=== PATIENT | female | born 1970 | race Caucasian/White ===

== ENCOUNTER 2016-07-15 21:12 | Inpatient (IN) | payer MEDICAID, OTHER ==
[~2016-07-15] VITALS: Ht 172.7 cm; Wt 126.6 kg
[~2016-07-15 21:12] MED LIST: ACET-4192 PO; CYCL-405 PO; IBUP-2213 PO
[2016-07-15 21:14] VITALS: BP 140/75
[2016-07-15 21:52] LABS: APPEARANCE,URINE HAZY (CLEAR); BILIRUBIN,URINE NEGATIVE (NEGATIVE); BLOOD, URINE 3+ (NEGATIVE); COLOR,URINE YELLOW (YELLOW); LEUKOCYTE ESTERASE ,URINE 1+ (NEGATIVE); NITRITE, URINE NEGATIVE (NEGATIVE); PROTEIN,URINE TRACE (NEGATIVE); UGLUCOSE NEGATIVE (NEGATIVE)
[2016-07-15 22:01] LABS: RBC,URINE 80-100 /HPF (0-5)
[2016-07-15 22:02] LABS: BACTERIA,URINE 2+ /HPF (None Seen); MUCUS,URINE 3+ /LPF (None Seen)
[2016-07-15] MEDS ORDERED: LORazepam 1 MG TAB PO ONE (23:20)
[2016-07-15] MEDS ORDERED: KETOROLAC 30 MG/ML VIAL IM ONE (23:20)
[2016-07-15 23:56] LABS: ANION GAP 10.5 (8-16); CARBON DIOXIDE 28.1 mmol/L (21-32); CREATININE 0.6 mg/dL (0.6-1.3); POTASSIUM 3.6 mmol/L (3.5-5.1)
[2016-07-16 00:10] LABS: RED BLOOD CELL COUNT(AUTO) 4.04 MIL/uL (4.20-5.40); WHITE BLOOD COUNT (AUTO) 20.2 K/uL (4.8-10.8)
[2016-07-16 00:12] LABS: HEMOGLOBIN 5.7 g/dL (12.0-16.0)
[2016-07-16 00:13] LABS: HEMATOCRIT 17.1 % (36-48); MEAN CORPUSCULAR HEMOGLOBIN 14 pg (27-31); MEAN CORPUSCULAR HGB CONC 27 g/dL (33-37); MEAN CORPUSCULAR VOLUME 53 fL (80-94); RED CELL DISTRIBUTION WIDTH 21.3 % (11.6-13.7)
[2016-07-16 00:14] LABS: PLATELET COUNT (AUTO) 571 K/uL (140-450)
[2016-07-16 00:15] LABS: BAND % (MANUAL) 4 % (0-8); LYMPHOCYTES % (MANUAL) 7 % (20-46); MONOCYTES % (MANUAL) 0 % (5-12); NEUTROPHILS % (MANUAL) 89 (43-65)
[2016-07-16 01:27] LABS: INR 1.2 (0.8-1.2); PROTHROMBIN TIME 11.8 secs (10.8-13.4)
[2016-07-16 03:13] VITALS: BP 130/58
[2016-07-16 04:00] VITALS: BP 110/59
[2016-07-16] MEDS ORDERED: MORPHINE SULFATE 2 MG/ML SYR IVP PRN (07:20)
[2016-07-16] MEDS ORDERED: HYDROcodone/APAP 5/325 MG 1 TAB TAB PO PRN ×2 (07:20)
[2016-07-16] MEDS ORDERED: ONDANSETRON 4 MG/2 ML VIAL IVP PRN (07:20)
[2016-07-16] MEDS ORDERED: ALBUTEROL 0.083% 2.5 MG/3 ML NEBU INH PRN (07:20)
[2016-07-16] MEDS ORDERED: diphenhydrAMINE 50 MG/ML VIAL IVP PRN (07:20)
[2016-07-16] MEDS ORDERED: ZOLPIDEM 5 MG TAB PO PRN (07:20)
[2016-07-16] MEDS ORDERED: SODIUM PHOSPHATE 118 ML ENEM RC PRN (07:20)
[2016-07-16] MEDS ORDERED: ALUMINUM HYD/MAG/SIMETHICONE 30 ML UDC PO PRN (07:20)
[2016-07-16] MEDS ORDERED: POTASSIUM CHLORIDE 40 MEQ, LIDOCAINE 1% 25 MG in NACL 0.9% 250 ML IV PRN (07:20)
[2016-07-16] MEDS ORDERED: MAGNESIUM OXIDE 400 MG TAB PO PRN (07:20)
[2016-07-16] MEDS ORDERED: guaiFENesin DM 200/20 MG-10 ML 10 ML UDC PO PRN (07:20)
[2016-07-16] MEDS ORDERED: POTASSIUM CHLORIDE 10 MEQ TABER PO PRN (07:20)
[2016-07-16] MEDS ORDERED: IPRATROPIUM 0.02% 0.5 MG/2.5 ML NEBU INH PRN (07:20)
[2016-07-16] MEDS ORDERED: ACETAMINOPHEN 325 MG TAB PO PRN (07:20)
[2016-07-16] MEDS ORDERED: ACETAMINOPHEN 650 MG SUPP RC PRN (07:20)
[2016-07-16] MEDS ORDERED: DOCUSATE SODIUM 250 MG GELCAP PO PRN (07:20)
[2016-07-16] MEDS ORDERED: cloNIDine 0.1 MG TAB PO PRN (07:20)
[2016-07-16] MEDS ORDERED: MAG SULF 2000 MG/WATER PREMIX 50 ML IV PRN (07:20)
[2016-07-16] MEDS ORDERED: LORazepam 2 MG/ML VIAL IVP PRN (07:20)
[2016-07-16] MEDS ORDERED: BISACODYL 10 MG SUPP RC PRN (07:20)
[2016-07-16 08:13] VITALS: BP 118/62
[2016-07-16 12:00] VITALS: BP 115/49
[2016-07-16 16:00] VITALS: BP 110/58
[2016-07-16 20:00] VITALS: BP 111/55
[2016-07-17] VITALS: BP 109/45
[2016-07-17 04:00] VITALS: BP 112/70
[2016-07-17 05:42] LABS: HEMOGLOBIN 7.4 g/dL (12.0-16.0)
[2016-07-17 06:19] LABS: BASOPHILS # (AUTO) 0.1 K/uL (0.00-0.22); BASOPHILS % (AUTO) 0.6 % (0.0-2.0); EOSINOPHILS # (AUTO) 0.2 K/uL (0-0.4); HEMATOCRIT 25.7 % (36-48); LYMPHOCYTES # (AUTO) 2.9 K/uL (2.5-16.5); MEAN CORPUSCULAR HEMOGLOBIN 17 pg (27-31); MEAN CORPUSCULAR HGB CONC 29 g/dL (33-37); MEAN CORPUSCULAR VOLUME 59 fL (80-94); MONOCYTES # (AUTO) 0.6 K/uL (0.8-1.0); MONOCYTES % (AUTO) 5.5 % (1.7-9.3); NEUTROPHILS # (AUTO) 7.7 K/uL (1.8-7.7); NEUTROPHILS % (AUTO) 66.9 % (42.2-75.2); PLATELET COUNT (AUTO) 484 K/uL (140-450); RED BLOOD CELL COUNT(AUTO) 4.33 MIL/uL (4.20-5.40); WHITE BLOOD COUNT (AUTO) 11.5 K/uL (4.8-10.8)
[2016-07-17 06:52] LABS: ANISOCYTOSIS 1+; HYPOCHROMASIA 1+; OVALOCYTES 1+; POIKILOCYTOSIS 1+
[2016-07-17 07:41] VITALS: BP 123/71
[2016-07-17 09:50] VITALS: BP 115/66
[2016-07-17 11:58] VITALS: BP 122/78
[2016-07-17] MEDS ORDERED: FERR325E14 PO (12:35)
[2016-07-17 12:48] VITALS: BP 122/78
== END 2016-07-17 16:12 | disposition home or self-care (01) | DRG 532 ==
LOC: MED 21:12 → MTU 07-16 01:54
PROVIDERS: ADMIT Hospitalist; ATTEND Hospitalist
PROC: 30233N1 Transfusion of Nonautologous Red Blood Cells into Peripheral Vein, Percutaneous Approach (ICD-10-PCS; principal; 2016-07-16)
PROC: 30233N1 Transfusion of Nonautologous Red Blood Cells into Peripheral Vein, Percutaneous Approach (ICD-10-PCS; 2016-07-17)
DX: N92.0 Excessive and frequent menstruation with regular cycle (principal); N39.0 Urinary tract infection, site not specified; Z68.41 Body mass index [BMI] 40.0-44.9, adult; D64.9 Anemia, unspecified; E66.9 Obesity, unspecified; R73.9 Hyperglycemia, unspecified
CPT/HCPCS: 36415; 71010; 80048; 81001; 83036; 83540; 84484; 85025; 85610; 85730; 86886; 86900; 86901; 86920; 87081; 87086; 93005; 96372; 99285; J0696; J1885; J7030; J7060; P9016; Q0092

== ENCOUNTER 2017-01-18 09:57 | Emergency (ER) | payer OTHER ==
[~2017-01-18] VITALS: Ht 172.7 cm; Wt 127.0 kg
[~2017-01-18 09:57] MED LIST changes: +FERR325E14 PO; -IBUP-2213 PO
--- NOTE | 2017-01-18 09:58 | NUR ---
Patient BIBA to bed 4
[2017-01-18 10:00] VITALS: BP 155/79
--- NOTE | 2017-01-18 10:00 | NUR ---
PATIENT PRESENTS TO ED WITH C/O HEAVY BLEEDING FOR THE PAST DAYS BUT ONLY SPOTTING AT THIS TIME. TAKING IRON MEDS. UNK. DOSAGE.PT STATES SHE HAS LLQ PAIN THAT RADIATES TO HER LOWER BACK;SKIN IS PINK/WARM/DRY; AAOX4 WITH EVEN AND STEADY GAIT; LUNGS CLEAR BL; HR EVEN AND REGULAR; PT DENIES ANY FEVER, CP, SOB, OR COUGH AT THIS TIME; PATIENT STATES PAIN OF 10/10 AT THIS TIME;PATIENT POSITIONED FOR COMFORT; HOB ELEVATED; BEDRAILS UP X2; BED DOWN.ALL MONITORS IN PLACED; ER MD MADE AWARE OF PT STATUS.
[2017-01-18] MEDS ORDERED: ACETAMINOPHEN EXTRA STRENGTH 500 MG TAB ONE (10:18)
[2017-01-18] MEDS ORDERED: KETOROLAC 30 MG/ML VIAL IVP ONE (10:30)
[2017-01-18] MEDS ORDERED: NACL 0.9% 1,000 ML IV ONE (10:30)
[2017-01-18 10:35] LABS: HEMATOCRIT 33.8 % (36-48); HEMOGLOBIN 10.5 g/dL (12.0-16.0); MEAN CORPUSCULAR HEMOGLOBIN 23 pg (27-31); MEAN CORPUSCULAR HGB CONC 31 g/dL (33-37); MEAN CORPUSCULAR VOLUME 75 fL (80-94); PLATELET COUNT (AUTO) 606 K/uL (140-450); RED BLOOD CELL COUNT(AUTO) 4.51 MIL/uL (4.20-5.40); RED CELL DISTRIBUTION WIDTH 16.7 % (11.6-13.7); WHITE BLOOD COUNT (AUTO) 19.9 K/uL (4.8-10.8)
[2017-01-18 10:44] LABS: ANION GAP 12.1 (8-16); CARBON DIOXIDE 28.7 mmol/L (21-32); CREATININE 0.6 mg/dL (0.6-1.3); POTASSIUM 3.8 mmol/L (3.5-5.1)
[2017-01-18 10:45] LABS: PROTHROMBIN TIME 11.4 secs (10.8-13.4)
[2017-01-18 10:50] LABS: ALBUMIN 3.6 g/dL (3.4-5.0); TOTAL BILIRUBIN 0.4 mg/dL (0.0-1.0)
[2017-01-18 10:52] LABS: EOSINOPHILS % (MANUAL) 4 % (0-4); LYMPHOCYTES % (MANUAL) 4 % (20-46); MONOCYTES % (MANUAL) 3 % (5-12)
--- NOTE | 2017-01-18 11:42 | NUR ---
PT RESTING ON BED;NO ACUTE DISTRESS NOTED;WILL CONTINUE TO MONITOR PT.
--- NOTE | 2017-01-18 11:46 | NUR ---
XRAY AT BEDSIDE.
[2017-01-18 12:30] LABS: APPEARANCE,URINE CLEAR (CLEAR); BILIRUBIN,URINE NEGATIVE (NEGATIVE); BLOOD, URINE 3+ (NEGATIVE); COLOR,URINE YELLOW (YELLOW); LEUKOCYTE ESTERASE ,URINE NEGATIVE (NEGATIVE); NITRITE, URINE NEGATIVE (NEGATIVE); UGLUCOSE TRACE (NEGATIVE)
--- NOTE | 2017-01-18 12:34 | NUR ---
PT AMBULATED TO THE RESTROOM ACCOMPANIED BYB HER .
[2017-01-18 12:59] LABS: RBC,URINE 3-10 (FEW) /HPF (0-5); WBC,URINE 0-5 (RARE) /HPF (0-5)
--- NOTE | 2017-01-18 13:09 | NUR ---
PT SLEEPING;ALL MONITORS IN PLACED;NO ACUTE DISTRESS NOTED;WILL CONTINUE TO MONITOR PT.
--- NOTE | 2017-01-18 14:00 | NUR ---
DR. BUTLER SPOKE TO PATIENT AND REGARDING DISPOSITION FOR DISCHARGE
[2017-01-18 14:20] VITALS: BP 137/64
--- NOTE | 2017-01-18 14:20 | NUR ---
CLINIC NUMBER PROVIDED TO PATIENT
== END 2017-01-18 14:20 | disposition home or self-care (01) ==
LOC: MED 09:57
DX: N93.8 Other specified abnormal uterine and vaginal bleeding (principal); D72.829 Elevated white blood cell count, unspecified; Z86.2 Personal history of diseases of the blood and blood-forming organs and certain disorders involving the immune mechanism
CPT/HCPCS: 36415; 71010; 76830; 80053; 81001; 83605; 85025; 85610; 85730; 87040; 87086; 96361; 96374; 99285; J1885; J7030; Q0092

== ENCOUNTER 2017-10-08 20:29 | Emergency (ER) | payer OTHER ==
[~2017-10-08] VITALS: Ht 172.7 cm; Wt 138.5 kg
[~2017-10-08 20:29] MED LIST changes: -ACET-4192 PO; -CYCL-405 PO
[2017-10-08 20:32] VITALS: BP 129/86
--- NOTE | 2017-10-08 20:37 | NUR ---
pt ambulated to bed 3.
--- NOTE | 2017-10-08 20:44 | NUR ---
c/o bilateral LE nonpitting edema x 2 days. also c/o SOB at rest. denies PMH PT DENIES N/V/D; SKIN IS INTACT, EDEMA OF FEET BILAT +4 PITTING, PINK/WARM/DRY; AAOX4, PERRL, WITH EVEN AND STEADY GAIT; LUNGS CLEAR BL, BREATHING UNLABORED; HR EVEN AND REGULAR, BL PERIPHERAL PULSES PRESENT; BS ACTIVE X4, NO TENDERNESS TO PALPATION, NO HEPATOSPLENOMEGALLY PALPATED, RESONANT TO PERCUSSION; PT DENIES ANY FEVER, CP, SOB, OR COUGH AT THIS TIME; PT STATES 0/10 PAIN AT THIS TIME; VSS; PATIENT POSITIONED FOR COMFORT; HOB ELEVATED; BEDRAILS UP X2; BED DOWN.
[2017-10-08] MEDS ORDERED: ENALAPRILAT 2.5 MG/2 ML VIAL IVP ONE (22:00)
[2017-10-08] MEDS ORDERED: FUROSEMIDE 40 MG/4 ML VIAL IVP ONE (22:00)
[2017-10-08 22:28] LABS: APPEARANCE,URINE CLEAR (CLEAR); BILIRUBIN,URINE NEGATIVE (NEGATIVE); BLOOD, URINE NEGATIVE (NEGATIVE); COLOR,URINE YELLOW (YELLOW); LEUKOCYTE ESTERASE ,URINE NEGATIVE (NEGATIVE); NITRITE, URINE NEGATIVE (NEGATIVE); UGLUCOSE 2+ (NEGATIVE)
--- NOTE | 2017-10-08 22:48 | NUR ---
PT ON ALIN IN [facility], NO IDENTIFIED REQUESTS AT THIS TIME.
--- NOTE | 2017-10-08 23:00 | NUR ---
PT AMBULATED TO BATHROOM WITHOUT INCIDENCE
[2017-10-09 00:10] VITALS: BP 128/68
--- NOTE | 2017-10-09 00:10 | NUR ---
PT REQUESTING TO EQUIPMENT SUPERINTENDENT D/C PAPERWORK LATER TODAY 10/09. PT CLEARED BY DR. MELO AND CHARGE NURSE FOR D/C. Patient discharged with v/s stable. Ambulatory with steady gait. All questions addressed prior to discharge. Advised to follow up with PMD.
== END 2017-10-09 00:10 | disposition home or self-care (01) ==
LOC: MED 20:29
DX: I83.93 Asymptomatic varicose veins of bilateral lower extremities (principal); Z79.899 Other long term (current) drug therapy
CPT/HCPCS: 36415; 81003; 81025; 84484; 87086; 93971; 96374; 96375; 99285; J1940; J3490; Q0092

== ENCOUNTER 2018-06-21 06:18 | Emergency (ER) | payer OTHER ==
[~2018-06-21] VITALS: Ht 172.7 cm; Wt 127.0 kg
[2018-06-21 06:28] VITALS: BP 157/74
--- NOTE | 2018-06-21 06:33 | NUR ---
PT TO ED WITH C/O DYSURIA X 1 DAY. ALSO REPORTING SOME BLOOD IN URINE. PT REPORTS TAKING AT HOME AZO WITH NO RELIEF. PT DENIES BACK PAIN OR ANY OTHER UTI S/S. PT PLACED INTO BED, PENDING MD JENSEN.
--- NOTE | 2018-06-21 07:16 | NUR ---
RECEIVED REPORT FROM KRISH BROWN.
--- NOTE | 2018-06-21 07:16 | NUR ---
REPORT TO STEPHANIE JAIN FOR TRANSFER OF CARE
[2018-06-21] MEDS ORDERED: cefTRIAXone 1,000 MG in LIDOCAINE 1% ***ER ONLY *** 2.1 ML IM ONE (07:35)
[2018-06-21] MEDS ORDERED: LEVOFLOXACIN 500 MG TAB PO ONE (07:35)
[2018-06-21] MEDS ORDERED: KETOROLAC 60 MG/2 ML VIAL IM ONE (07:35)
[2018-06-21] MEDS ORDERED: cefTRIAXone 1,000 MG VIAL ONE (07:49)
[2018-06-21] MEDS ORDERED: LIDOCAINE MPF 1% 5mL VIAL ONE (07:51)
--- NOTE | 2018-06-21 08:00 | NUR ---
Yfn barry in EDM - 06/21/[address] at [email or web address] GARCIA STATED HIS MED CLEAR & CAN DISCHARGE PT & TRANSFER HIM TO [facility] TO GET NALTROXONE. NOTIFIED DR ANG.
--- NOTE | 2018-06-21 08:09 | NUR ---
Yfn barry in EDM - 06/21/18 at 0810 by MED1 STEPHANIE LI :I THREW UP & WANT LANTUS 30 UNIT AT THIS TIME. NOTIFIED DR ANG.
--- NOTE | 2018-06-21 08:10 | NUR ---
Yfn barry in EDM - 06/21/18 at 0824 by MED1 PT STATED :I THREW UP & WANT LANTUS 30 UNIT AT THIS TIME. NOTIFIED DR ANG.
--- NOTE | 2018-06-21 08:31 | NUR ---
Patient discharged with v/s stable. Written and verbal after care instructions given and explained. Patient alert, oriented and verbalized understanding of instructions. Ambulatory with steady gait. All questions addressed prior to discharge. ID band removed. Patient advised to follow up with PMD. Rx of NAPROSYN & LEVAQUIN given. Patient educated on indication of medication including possible reaction and side effects. Opportunity to ask questions provided and answered.
[2018-06-21 08:32] VITALS: BP 113/64
== END 2018-06-21 08:31 | disposition home or self-care (01) ==
LOC: MED 06:18
DX: N30.01 Acute cystitis with hematuria (principal); Z79.899 Other long term (current) drug therapy
CPT/HCPCS: 81002; 81025; 96372; 99283; J0696; J1885; J2001

== ENCOUNTER 2019-01-30 09:34 | Observation (INO) | payer OTHER ==
[~2019-01-30] VITALS: Ht 172.7 cm; Wt 122.5 kg
[2019-01-30 09:41] VITALS: BP 120/63
[2019-01-30 10:20] LABS: BASOPHILS % (AUTO) 0.3 % (0.0-2.0); EOSINOPHILS # (AUTO) 0.1 K/uL (0-0.4); EOSINOPHILS % (AUTO) 1.6 % (0.0-4.0); HEMATOCRIT 23.6 % (36-48); LYMPHOCYTES # (AUTO) 2.1 K/uL (2.5-16.5); LYMPHOCYTES % (AUTO) 27.1 % (20.5-51.1); MEAN CORPUSCULAR HEMOGLOBIN 14 pg (27-31); MEAN CORPUSCULAR HGB CONC 27 g/dL (33-37); MEAN CORPUSCULAR VOLUME 53.6 fL (80-94); MONOCYTES # (AUTO) 0.3 K/uL (0.8-1.0); MONOCYTES % (AUTO) 4.3 % (1.7-9.3); NEUTROPHILS # (AUTO) 5.2 K/uL (1.8-7.7); NEUTROPHILS % (AUTO) 66.7 % (42.2-75.2); PLATELET COUNT (AUTO) 598 K/uL (140-450); RED BLOOD CELL COUNT(AUTO) 4.41 MIL/uL (4.20-5.40); RED CELL DISTRIBUTION WIDTH 22.2 % (11.6-13.7); WHITE BLOOD COUNT (AUTO) 7.7 K/uL (4.8-10.8)
[2019-01-30 10:34] LABS: ALBUMIN 3.6 g/dL (3.4-5.0); ANION GAP 10.5 (8-16); CARBON DIOXIDE 27.4 mmol/L (21-32); CREATININE 0.5 mg/dL (0.6-1.3); POTASSIUM 3.9 mmol/L (3.5-5.1); TOTAL BILIRUBIN 0.6 mg/dL (0.0-1.0)
[2019-01-30 10:36] LABS: HEMOGLOBIN 6.3 g/dL (12.0-16.0)
[2019-01-30 10:49] LABS: PROTHROMBIN TIME 11.3 secs (10.8-13.4)
[2019-01-30] MEDS ORDERED: ALBUTEROL 0.083% 2.5 MG/3 ML NEBU INH PRN (11:35)
[2019-01-30] MEDS ORDERED: LORazepam 2 MG/ML VIAL IVP PRN (11:35)
[2019-01-30] MEDS ORDERED: MORPHINE SULFATE 2 MG/ML SYR IVP PRN (11:35)
[2019-01-30] MEDS ORDERED: ONDANSETRON 4 MG/2 ML VIAL IVP PRN (11:35)
[2019-01-30] MEDS ORDERED: MORPHINE SULFATE 4 MG/ML SYR IVP PRN (11:35)
[2019-01-30 12:25] VITALS: BP 110/62
[2019-01-30] MEDS ORDERED: DEXTROSE 50% 50 ML SYR IVP PRN (12:40)
[2019-01-30 16:00] VITALS: BP 114/50
[2019-01-30] MEDS: FERROUS SULFATE 325 MG TABEC PO SCH (16:58)
[2019-01-30] MEDS: BLOOD GLUCOSE MONITORING 1 DEV DEV FS SCH ×2 (17:00→21:48)
[2019-01-30] MEDS: INSULIN LISPRO SLIDING SCALE 100 UNITS/ML VIAL SUBQ PRN ×2 (17:01→21:49)
[2019-01-30 18:17] LABS: BASOPHILS % (AUTO) 0.3 % (0.0-2.0); EOSINOPHILS # (AUTO) 0.2 K/uL (0-0.4); EOSINOPHILS % (AUTO) 1.8 % (0.0-4.0); HEMATOCRIT 23.2 % (36-48); LYMPHOCYTES # (AUTO) 2.7 K/uL (2.5-16.5); LYMPHOCYTES % (AUTO) 28.4 % (20.5-51.1); MEAN CORPUSCULAR HEMOGLOBIN 15 pg (27-31); MEAN CORPUSCULAR HGB CONC 27 g/dL (33-37); MEAN CORPUSCULAR VOLUME 53.4 fL (80-94); MONOCYTES # (AUTO) 0.5 K/uL (0.8-1.0); MONOCYTES % (AUTO) 5.4 % (1.7-9.3); NEUTROPHILS # (AUTO) 6.1 K/uL (1.8-7.7); NEUTROPHILS % (AUTO) 64.1 % (42.2-75.2); PLATELET COUNT (AUTO) 590 K/uL (140-450); RED BLOOD CELL COUNT(AUTO) 4.34 MIL/uL (4.20-5.40); RED CELL DISTRIBUTION WIDTH 22.3 % (11.6-13.7); WHITE BLOOD COUNT (AUTO) 9.5 K/uL (4.8-10.8)
[2019-01-30 20:00] VITALS: BP 121/49
[2019-01-30 20:14] LABS: HEMOGLOBIN 6.3 g/dL (12.0-16.0)
[2019-01-31] VITALS: BP 120/50
[2019-01-31 05:00] VITALS: BP 121/63
[2019-01-31 06:30] LABS: HEMATOCRIT 22.8 % (36-48); MEAN CORPUSCULAR HEMOGLOBIN 14 pg (27-31); MEAN CORPUSCULAR HGB CONC 26 g/dL (33-37); MEAN CORPUSCULAR VOLUME 53.3 fL (80-94); PLATELET COUNT (AUTO) 516 K/uL (140-450); RED BLOOD CELL COUNT(AUTO) 4.28 MIL/uL (4.20-5.40); RED CELL DISTRIBUTION WIDTH 22.1 % (11.6-13.7); WHITE BLOOD COUNT (AUTO) 8.7 K/uL (4.8-10.8)
[2019-01-31] MEDS: BLOOD GLUCOSE MONITORING 1 DEV DEV FS SCH ×4 (06:54→21:05)
[2019-01-31 07:02] LABS: ALBUMIN 3.3 g/dL (3.4-5.0); ANION GAP 11.9 (8-16); CARBON DIOXIDE 28.1 mmol/L (21-32); CREATININE 0.5 mg/dL (0.6-1.3); TOTAL BILIRUBIN 0.5 mg/dL (0.0-1.0)
[2019-01-31] MEDS: INSULIN LISPRO SLIDING SCALE 100 UNITS/ML VIAL SUBQ PRN ×3 (07:12→21:01)
[2019-01-31 08:00] VITALS: BP 113/50
[2019-01-31 09:04] LABS: EOSINOPHILS % (MANUAL) 2 % (0-4); LYMPHOCYTES % (MANUAL) 26 % (20-46); MONOCYTES % (MANUAL) 8 % (5-12)
[2019-01-31] MEDS: FERROUS SULFATE 325 MG TABEC PO SCH ×2 (09:55→17:42)
[2019-01-31 12:00] VITALS: BP 111/49
[2019-01-31 16:00] VITALS: BP 122/48
[2019-01-31 20:00] VITALS: BP 115/53
[2019-01-31 20:32] LABS: BASOPHILS # (AUTO) 0.1 K/uL (0.00-0.22); BASOPHILS % (AUTO) 0.8 % (0.0-2.0); EOSINOPHILS # (AUTO) 0.2 K/uL (0-0.4); EOSINOPHILS % (AUTO) 1.7 % (0.0-4.0); HEMOGLOBIN 8.2 g/dL (12.0-16.0); LYMPHOCYTES # (AUTO) 2.5 K/uL (2.5-16.5); LYMPHOCYTES % (AUTO) 21.6 % (20.5-51.1); MEAN CORPUSCULAR HEMOGLOBIN 17 pg (27-31); MEAN CORPUSCULAR HGB CONC 28 g/dL (33-37); MEAN CORPUSCULAR VOLUME 59.1 fL (80-94); MONOCYTES # (AUTO) 0.5 K/uL (0.8-1.0); MONOCYTES % (AUTO) 4.7 % (1.7-9.3); NEUTROPHILS # (AUTO) 8.2 K/uL (1.8-7.7); NEUTROPHILS % (AUTO) 71.2 % (42.2-75.2); PLATELET COUNT (AUTO) 571 K/uL (140-450); RED BLOOD CELL COUNT(AUTO) 4.92 MIL/uL (4.20-5.40); RED CELL DISTRIBUTION WIDTH 30.9 % (11.6-13.7); WHITE BLOOD COUNT (AUTO) 11.5 K/uL (4.8-10.8)
== END 2019-01-31 21:40 | disposition home or self-care (01) ==
LOC: MED 09:34 → MTU 11:36
PROVIDERS: ADMIT Internal Medicine Pulmonary Disease; ATTEND Internal Medicine Pulmonary Disease
DX: D50.0 Iron deficiency anemia secondary to blood loss (chronic) (principal); D25.9 Leiomyoma of uterus, unspecified; E11.9 Type 2 diabetes mellitus without complications; E66.9 Obesity, unspecified
CPT/HCPCS: 36415; 36430; 80053; 82948; 83036; 83540; 85025; 85610; 85730; 86870; 86886; 86900; 86901; 86920; 87081; 94760; 96372; 99285; G0378; J1815; J7030; P9016

== ENCOUNTER 2022-01-01 04:33 | Emergency (ER) | payer OTHER ==
[~2022-01-01] VITALS: Ht 174 cm; Wt 128.4 kg
[2022-01-01 04:51] VITALS: BP 150/94
--- NOTE | 2022-01-01 04:54 | NUR ---
URINE COLLECTED, PT TO LOBBY.
--- NOTE | 2022-01-01 05:24 | NUR ---
pt taken to bed 2
[2022-01-01 06:23] LABS: APPEARANCE,URINE CLEAR (CLEAR); BILIRUBIN,URINE NEGATIVE (NEGATIVE); BLOOD, URINE 3+ (NEGATIVE); COLOR,URINE ORANGE (YELLOW); LEUKOCYTE ESTERASE ,URINE 2+ (NEGATIVE); NITRITE, URINE POSITIVE (NEGATIVE); PH,URINE 6.5 (5.0-9.0); UGLUCOSE NEGATIVE (NEGATIVE)
[2022-01-01 06:37] LABS: RBC,URINE 0-5 /HPF (0-5)
[2022-01-01] MEDS ORDERED: CEPH-588 PO (06:41)
[2022-01-01 07:28] VITALS: BP 127/85
--- NOTE | 2022-01-04 16:28 | NUR ---
LATE ENTRY- RECEIVED POSITIVE URINE CULTURE. FORM GIVEN TO DR ESPARZA. DR. ESPARZA CALLED PT, INSTRUCTED HER TO STOP TAKIGN KEFLEX. CALLED IN NEW RX OF CIPRO AND AZO TO PTS PHARM[facility]. FORM PLACED IN BINDER
== END 2022-01-01 07:29 | disposition home or self-care (01) ==
LOC: MED 04:33
DX: N39.0 Urinary tract infection, site not specified (principal); R30.0 Dysuria; R31.9 Hematuria, unspecified; M54.9 Dorsalgia, unspecified; E11.9 Type 2 diabetes mellitus without complications; Z79.84 Long term (current) use of oral hypoglycemic drugs; Z79.899 Other long term (current) drug therapy
CPT/HCPCS: 81001; 81025; 87086; 99283